=== PATIENT | male | born 1950 | race Caucasian/White ===

== ENCOUNTER 2017-09-27 15:41 | Emergency (ER) | payer MEDICARE, OTHER ==
[~2017-09-27] VITALS: Ht 162.6 cm; Wt 75.0 kg
[2017-09-27 15:43] VITALS: BP 157/78; PULSE 89; RESP 16; TEMP 98; O2SAT 95
--- NOTE | 2017-09-27 19:19 | PD ---
HPI Chief Complaint: Diabetic Time Seen by Provider: 19:07 Travel History International Travel<30 days: No Contact w/Intl Traveler<30days: [place] Country Traveled to: [place] Traveled to known affect area: No History of Present Illness HPI 67-year-old, diabetic type 2, male presents emergency department after being called by the [place] [facility] for serum glucose of 508 on his labs today. BGM in triage was 501. He reports increased urinary frequency and increased thirst for the past 2 weeks. He came from [place] about 2-3 weeks ago. He was checking his sugars in [place], but left his machine in [place]. He was checking his sugars before he left [place] and the highest reading reported was in the 100's to 200s. Denies chest pain, shortness of breath, change in mentation. Denies abdominal pain, nausea, vomiting. Takes glyburide 4 mg twice daily and Janumet 50/500 twice daily. He is compliant with his medications. No known aggravating or relieving factors. Has history of diabetes type 2 and hypertension. Has a follow-up appointment with the [place] [facility] next week. Has no other medical complaints. No other modifying factors or associated signs and symptoms. PFSH Past Medical History Cardiovascular Problems: Yes (HTN) Diabetes: Yes Patient Takes Glucophage: No Diminished Hearing: No Genitourinary: Yes (Bladder doesn"t empty complete) Neurologic: Yes (RLS) Tetanus Vaccination: < 5 Years Influenza Vaccination: No Social History Alcohol Use: No Tobacco Use: No Substance Use: No Allergies-Medications (Allergen,Severity, Reaction): Coded Allergies: No Known Allergies (Unverified , 09/27/17) Reported Meds & Prescriptions Reported Meds & Active Scripts Active Keflex (Cephalexin) 500 Mg Cap 500 Mg PO Q12H 7 Days Reported Janumet (Sitagliptin-Metformin) 50-500 Mg Tab 1 Tab PO BID Amaryl (Glimepiride) 4 Mg Tab 4 Mg PO BID Take with breakfast or the first main meal Cardura (Doxazosin Mesylate) 4 Mg Tab 4 Mg PO DAILY Mirapex (Pramipexole Dihydrochloride) 0.5 Mg Tab 0.5 Mg PO DAILY Diovan (Valsartan) 160 Mg Tab 160 Mg PO DAILY Tamsulosin (Tamsulosin HCl) 0.4 Mg Cap 0.4 Mg PO DAILY Primidone 50 Mg Tab 200 Mg PO HS Primidone 50 Mg Tab 150 Mg PO DAILY IN THE AM Metoprolol Succinate ER 24 HR (Metoprolol Succinate) 50 Mg Tab 50 Mg PO DAILY Review of Systems Except as stated in HPI: all other systems reviewed are Neg Physical Exam Narrative GENERAL: Well-nourished, well-developed elderly, male patient, in no acute distress SKIN: Warm and dry. HEAD: Atraumatic. Normocephalic. EYES: Pupils equal and round. No scleral icterus. No injection or drainage. ENT: Mucosa pink and moist. Airway patent. NECK: Trachea midline. CARDIOVASCULAR: Regular rate and rhythm. No murmur appreciated. RESPIRATORY: No accessory muscle use. Breath sounds clear and equal bilaterally. No retractions or tachypnea. GASTROINTESTINAL: Abdomen soft, non-tender, nondistended. Bowel sounds active 4 quadrants. Nonrigid. No guarding. MUSCULOSKELETAL: No obvious deformities. No clubbing. No cyanosis. No edema. NEUROLOGICAL: Awake and alert. Oriented 3. No obvious cranial nerve deficits. Motor grossly within normal limits. Normal speech. PSYCHIATRIC: Appropriate mood and affect; insight and judgment normal. Data Data Last Documented VS Vital Signs Date Time Temp Pulse Resp B/P (MAP) Pulse Ox O2 Delivery O2 Flow Rate FiO2 09/27/17 19:36 64 18 151/80 (103) 98 Aerosol Mask 09/27/17 15:43 98.0 Orders Orders Complete Blood Count With Diff (09/27/17 18:43) Basic Metabolic Panel (Bmp) (09/27/17 18:43) Beta Hydroxybutyrate (Acetone) (09/27/17 18:43) Urinalysis - C+S If Indicated (09/27/17 18:44) Sodium Chlor 0.9% 1000 Ml Inj (Ns 1000 M (09/27/17 19:30) Urine Culture (09/27/17 19:11) Insulin Human Regular Inj (Novolin R Inj (09/27/17 20:45) Ed Discharge Order (09/27/17 20:35) Labs Laboratory Tests Test 09/27/17 19:11 White Blood Count 8.5 TH/MM3 Red Blood Count 5.16 MIL/MM3 Hemoglobin 15.6 GM/DL Hematocrit 47.0 % Mean Corpuscular Volume 91.1 FL Mean Corpuscular Hemoglobin 30.3 PG Mean Corpuscular Hemoglobin Concent 33.3 % Red Cell Distribution Width 12.8 % Platelet Count 246 TH/MM3 Mean Platelet Volume 8.8 FL Neutrophils (%) (Auto) 58.1 % Lymphocytes (%) (Auto) 33.1 % Monocytes (%) (Auto) 6.7 % Eosinophils (%) (Auto) 1.3 % Basophils (%) (Auto) 0.8 % Neutrophils # (Auto) 4.9 TH/MM3 Lymphocytes # (Auto) 2.8 TH/MM3 Monocytes # (Auto) 0.6 TH/MM3 Eosinophils # (Auto) 0.1 TH/MM3 Basophils # (Auto) 0.1 TH/MM3 CBC Comment DIFF FINAL Differential Comment Urine Color LIGHT-YELLOW Urine Turbidity CLEAR Urine pH 5.5 Urine Specific [place] 1.033 Urine Protein NEG mg/dL Urine Glucose (UA) 1000 mg/dL Urine Ketones NEG mg/dL Urine Occult Blood NEG Urine Nitrite NEG Urine Bilirubin NEG Urine Urobilinogen LESS THAN 2.0 MG/DL Urine Leukocyte Esterase SMALL Urine RBC LESS THAN 1 /hpf Urine WBC 18 /hpf Urine Bacteria FEW /hpf Microscopic Urinalysis Comment CULTURE INDICATED Blood Urea Nitrogen 13 MG/DL Creatinine 0.83 MG/DL Random Glucose 325 MG/DL Calcium Level 9.3 MG/DL Sodium Level 131 MEQ/L Potassium Level 4.5 MEQ/L Chloride Level 96 MEQ/L Carbon Dioxide Level 28.9 MEQ/L Anion Gap 6 MEQ/L Estimat Glomerular Filtration Rate 92 ML/MIN B-Hydroxybutyrate 0.18 MMOL/L [facility] Medical Decision Making Medical Screen Exam Complete: Yes Emergency Medical Condition: Yes Medical Record Reviewed: Yes Differential Diagnosis Hyperglycemia, DKA, medical clearance Narrative Course 67-year-old male with type 2 diabetes and by the [place] [facility] for serum glucose of 508. BGM in triage was 501. Reports polydipsia and polyuria 2 weeks. Takes Janumet and glyburide and has been compliant with medications. CBC, BMP, beta hydroxybutyrate, urinalysis ordered in triage. Normal saline bolus ordered. 2003: CBC unremarkable. 2027: Random glucose 325. Carbon dioxide 20.9. Anion gap 6. Beta hydroxybutyrate 0.18. No signs of DKA. Urine analysis is signs of infection. Patient discussed with Dr. Urrutia, my attending physician, and he recommended 5 units of regular insulin and then discharge home. 5 units regular insulin subcutaneous administered in the ER. Keflex prescribed for home. [facility] Instructed patient to follow up with primary care provider. Patient verbalizes understanding and agreement with treatment plan. Patient is medically cleared and stable for discharge. Discussed reasons to return to the emergency department. Patient agrees with treatment plan. The patients vital signs are stable and the patient is stable for outpatient follow-up and treatment. Patient discharged home, stable and in no acute distress. Diagnosis Primary Impression: Hyperglycemia Additional Impression: UTI (urinary tract infection) Qualified Codes: N39.0 - Urinary tract infection, site not specified Referrals: Primary Care Physician Patient Instructions: Diabetic Hyperglycemia (ED), General Instructions, Urinary Tract Infection in Men (ED) Additional Instructions: Take antibiotics as prescribed Continue medications as prescribed Count carbohydrates Check blood sugars Follow-up with primary care provider in one day off Return to the emergency department immediately if worsening of symptoms Med/Other Pt SpecificInfo: Prescription(s) given Scripts Cephalexin (Keflex) 500 Mg Cap 500 MG PO Q12H for Infection for 7 Days, #14 CAP 0 Refills Prov: Josiane Booker 09/27/17 Disposition: DISCHARGE HOME Condition: Stable Josiane Booker Sep 27, 2017 19:19
[2017-09-27] MEDS ORDERED: SODIUM CHLOR 0.9% 1000 ML INJ 1,000 ML IV ONE (19:30)
[2017-09-27 19:36] VITALS: BP 151/80; PULSE 64; RESP 18; O2SAT 98
[2017-09-27] MEDS ORDERED: METO1TAB9 PO (19:50)
[2017-09-27] MEDS ORDERED: AMAR4TAB PO (19:50)
[2017-09-27] MEDS ORDERED: MIRA0.5T PO (19:50)
[2017-09-27] MEDS ORDERED: PRIM50TA5 PO ×2 (19:50)
[2017-09-27] MEDS ORDERED: CARD4TAB2 PO (19:50)
[2017-09-27] MEDS ORDERED: DIOV160T6 PO (19:50)
[2017-09-27] MEDS ORDERED: TAMS0.4C4 PO (19:50)
[2017-09-27] MEDS ORDERED: JANU50TA4 PO (19:50)
[2017-09-27 19:51] LABS: AUTOMATED NEUTROPHIL # 4.9 TH/MM3 (1.8-7.7); BASOPHIL # 0.1 TH/MM3 (0-0.2); BASOPHIL % 0.8 % (0.0-2.0); EOSINOPHIL # 0.1 TH/MM3 (0-0.4); EOSINOPHIL % 1.3 % (0.0-4.0); HEMO FLAGS DIFF FINAL; LYMPH % 33.1 % (9.0-44.0); LYMPHOCYTE # 2.8 TH/MM3 (1.0-4.8); MEAN CELL VOLUME 91.1 FL (80.0-100.0); MEAN CORPUSCULAR HEMOGLOBIN 30.3 PG (27.0-34.0); MEAN CORPUSCULAR HGB CONC 33.3 % (32.0-36.0); MONO % 6.7 % (0.0-8.0); NEUT % 58.1 % (16.0-70.0); PLATELET COUNT 246 TH/MM3 (150-450); RED BLOOD COUNT 5.16 MIL/MM3 (4.50-5.90); RED CELL DISTRIBUTION WIDTH 12.8 % (11.6-17.2); WHITE BLOOD COUNT 8.5 TH/MM3 (4.0-11.0)
[2017-09-27 20:12] LABS: BACTERIA, URINE FEW /hpf; BLOOD, URINE NEG (NEG); COMMENT (UR) CULTURE INDICATED; CULTURE IF INDICATED CULTURE INDICATED; GLUCOSE,URINE 1000 mg/dL (NEG); KETONE, URINE NEG (NEG); NITRITE,URINE NEG (NEG); PH, URINE 5.5 (5.0-8.5); URINE COLOR LIGHT-YELLOW (YELLW/STRAW)
[2017-09-27 20:16] LABS: BICARBONATE 28.9 MEQ/L (21.0-32.0); POTASSIUM 4.5 MEQ/L (3.5-5.1)
[2017-09-27 20:17] LABS: BETA-HYDROXYBUTYRATE 0.18 MMOL/L (0.00-0.39)
[2017-09-27] MEDS ORDERED: CEPH-460 PO (20:34)
[2017-09-27] MEDS ORDERED: INSULIN HUMAN REGULAR 1,000 UNITS/10 ML VIAL SQ ONE (20:45)
[2017-09-27] MEDS ORDERED: CEPHALEXIN MONOHYDRATE 500 MG CAP PO ONE (21:15)
[2017-09-27 21:29] VITALS: BP 150/96
== END 2017-09-27 21:30 | disposition home or self-care (01) ==
LOC: NEPD 15:41
DX: E11.65 Type 2 diabetes mellitus with hyperglycemia (principal); N39.0 Urinary tract infection, site not specified; B96.89 Other specified bacterial agents as the cause of diseases classified elsewhere; I10 Essential (primary) hypertension; G25.81 Restless legs syndrome; Z79.899 Other long term (current) drug therapy
CPT/HCPCS: 80048; 81001; 82010; 85025; 87086; 96360; 96372; 99284; J1815; J7030